=== PATIENT | female | born 1950 | race African-American/Black ===

== ENCOUNTER 2018-03-25 08:29 | Emergency (ER) | payer OTHER, MEDICAID ==
[~2018-03-25] VITALS: Ht 165.1 cm; Wt 82.6 kg
[~2018-03-25 08:29] MED LIST: ATEN100T PO
--- NOTE | 2018-03-25 08:37 | NUR ---
Patient refused carolee stating, "I have to go out to my car. I feel sick." I informed her that we do in fact treat sick people in the ER and we can help if she would like to come back immediately. Patient refused and walked out to her car.
[2018-03-25 08:58] VITALS: BP_SYST 130
--- NOTE | 2018-03-25 09:05 | NUR ---
Patient to ER bed 8 to gown for evaluation. Side rails up.
--- NOTE | 2018-03-25 09:15 | NUR ---
Pt presents to ED c/o R hand pain s/p blood draw. Pt has discoloration at site. Pt h/o L breast CA reports PICC line for access for chemo removed. Pt has limit access for iv access.
--- NOTE | 2018-03-25 09:20 | NUR ---
ER at bedside examining patient.
[2018-03-25] MEDS ORDERED: NACL 0.9% 1,000 ML IV ONE (09:45)
[2018-03-25] MEDS ORDERED: KETOROLAC TROMETHAMINE 30 MG VIAL IVP ONE (09:45)
[2018-03-25] MEDS ORDERED: ONDANSETRON HCL 4 MG/2 ML VIAL IVP ONE (09:45)
[2018-03-25] MEDS ORDERED: PANTOPRAZOLE SODIUM 40 MG/VIAL (PROTONIX) IVP ONE (10:15)
--- NOTE | 2018-03-25 11:15 | NUR ---
Pt tolerating medicationand hydration well. Continuing to monitor
[2018-03-25 11:26] LABS: HEMATOCRIT 35.1 % (36-48); HEMOGLOBIN 11.4 g/dL (12.0-16.0); MEAN CORPUSCULAR HEMOGLOBIN 27 pg (27-31); MEAN CORPUSCULAR HGB CONC 32 % (32-36); MEAN CORPUSCULAR VOLUME 85 fL (79.0-98.0); PLATELET COUNT (AUTO) 439 K/uL (130-430); RED BLOOD CELL COUNT(AUTO) 4.15 MIL/uL (4.2-6.2); RED CELL DISTRIBUTION WIDTH 13.2 % (9.0-15.0); WHITE BLOOD COUNT (AUTO) 3.2 K/uL (4.8-10.8)
[2018-03-25 11:29] LABS: CALCIUM 9.3 mg/dL (8.4-11.0); CREATININE 0.95 mg/dL (0.55-1.30); POTASSIUM 3.5 mmol/L (3.5-5.1)
[2018-03-25 11:35] LABS: PROTHROMBIN TIME 9.9 SECS (9.5-12.5)
[2018-03-25 11:36] LABS: ALBUMIN 3.2 g/dL (3.4-4.8); TOTAL BILIRUBIN 0.4 mg/dL (0.0-1.0)
[2018-03-25 11:57] LABS: BASOPHILS % (MANUAL) 0 % (0-2); EOSINOPHILS % (MANUAL) 0 % (0-7); LYMPHOCYTES % (MANUAL) 75 % (20-46); MONOCYTES % (MANUAL) 14 % (0-11)
[2018-03-25 12:41] VITALS: BP_SYST 128
--- NOTE | 2018-03-25 12:41 | NUR ---
Patient given written and verbal discharge instructions and verbalizes understanding. ER MD discussed with patient the results and treatment provided. Patient in stable condition. ID arm band removed. IV catheter removed intact and dressing applied, no active bleeding. Rx of zofran,naproxen,imodium given. Patient educated on pain management and to follow up with PMD. Pain Scale 0. Opportunity for questions provided and answered. Medication side effect fact sheet provided.
== END 2018-03-25 12:41 | disposition home or self-care (01) ==
LOC: SED 08:29
DX: K52.9 Noninfective gastroenteritis and colitis, unspecified (principal); M79.641 Pain in right hand; K21.9 Gastro-esophageal reflux disease without esophagitis; J45.909 Unspecified asthma, uncomplicated; I10 Essential (primary) hypertension
CPT/HCPCS: 36415; 80053; 85007; 85027; 85610; 85730; 96361; 96374; 96375; 99283; C9113; J1885; J2405; J7030

== ENCOUNTER 2019-01-23 08:24 | Emergency (ER) | payer OTHER, MEDICAID ==
[~2019-01-23] VITALS: Ht 165.1 cm; Wt 86.2 kg
[2019-01-23 08:24] VITALS: BP_SYST 109
--- NOTE | 2019-01-23 08:24 | NUR ---
BROUGHT BACK TO BED #7 AND TRIAGED, REPORT GIVEN TO PORTIA
--- NOTE | 2019-01-23 08:25 | NUR ---
Pt brought by self, A&Ox4, pt presents to ER with pain and discomfort on vaginal area,foul odor, pt states she had chemo recently , Hx of getting infections after chemo, skin pink and warm, cap refill <3, VSS, afebrile.
--- NOTE | 2019-01-23 09:00 | NUR ---
Dr Alberto at bedside examining patient
--- NOTE | 2019-01-23 09:10 | NUR ---
16 # FR In and Out catheter with use of sterile technique. Immediate return of 100 ml urine noted. Urine sample collected and sent to lab. Pt tolerated procedure . Patient unable to toilet self.
[2019-01-23] MEDS ORDERED: NACL 0.9% 1,000 ML IV ONE (09:34)
[2019-01-23 09:48] LABS: BILIRUBIN,URINE NEGATIVE (NEGATIVE); BLOOD, URINE NEGATIVE (NEGATIVE); CLARITY/URINE CLEAR (CLEAR); COLOR,URINE YELLOW (YELLOW); GLUCOSE,URINE NEGATIVE (NEGATIVE); KETONES,URINE NEGATIVE (NEGATIVE); LEUKOCYTE ESTERASE ,URINE TRACE (NEGATIVE); NITRITE, URINE NEGATIVE (NEGATIVE); PH,URINE 5.5 (5.0-8.0); PROTEIN URINE NEGATIVE (NEGATIVE)
[2019-01-23 09:55] LABS: BACTERIA,URINE FEW /HPF (None Seen); RBC,URINE 0-3 /HPF (0-3)
[2019-01-23 09:56] LABS: HYALINE CASTS, URINE 0-10 /LPF (None Seen)
[2019-01-23 10:29] LABS: BASOPHILS % (AUTO) 1.1 % (0.0-2.0); EOSINOPHILS % (AUTO) 0.1 % (0.0-4.0); HEMOGLOBIN 9.3 g/dL (12.0-16.0); LYMPHOCYTES # (AUTO) 1.4 K/uL (1.0-5.5); MEAN CORPUSCULAR HEMOGLOBIN 29 pg (27-31); MEAN CORPUSCULAR HGB CONC 33 % (32-36); MEAN CORPUSCULAR VOLUME 86 fL (79.0-98.0); MONOCYTES # (AUTO) 0.8 K/uL (0.0-1.0); MONOCYTES % (AUTO) 17.1 % (1.7-9.3); NEUTROPHILS # (AUTO) 2.3 K/uL (1.8-7.7); NEUTROPHILS % (AUTO) 50.7 % (40.0-70.0); RED BLOOD CELL COUNT(AUTO) 3.26 MIL/uL (4.2-6.2); RED CELL DISTRIBUTION WIDTH 17.1 % (9.0-15.0); WHITE BLOOD COUNT (AUTO) 4.6 K/uL (4.8-10.8)
[2019-01-23 10:35] LABS: CALCIUM 8.4 mg/dL (8.4-11.0); CREATININE 1.35 mg/dL (0.55-1.30); POTASSIUM 3.4 mmol/L (3.5-5.1)
--- NOTE | 2019-01-23 10:36 | NUR ---
Pt medicated as ordered, well tolerated.
[2019-01-23 10:40] LABS: ALBUMIN 2.6 g/dL (3.4-4.8); TOTAL BILIRUBIN 0.5 mg/dL (0.0-1.0)
[2019-01-23 10:54] LABS: PLATELET COUNT (AUTO) 186 K/uL (130-430)
[2019-01-23] MEDS ORDERED: POTASSIUM CHLORIDE 20 MEQ/PKT PACKET PO ONE (11:00)
[2019-01-23] MEDS ORDERED: ONDANSETRON HCL 4 MG/2 ML VIAL IVP ONE (11:15)
[2019-01-23 11:56] VITALS: BP_SYST 110
--- NOTE | 2019-01-23 11:56 | NUR ---
Patient given written and verbal discharge instructions and verbalizes understanding. ER MD discussed with patient the results and treatment provided. Patient in stable condition. ID arm band removed. IV catheter removed intact and dressing applied, no active bleeding. Rx of Zofran, fluconazole, Monistat given. Patient educated on pain management and to follow up with PMD. Pain Scale 0/10. Opportunity for questions provided and answered. Medication side effect fact sheet provided.
== END 2019-01-23 11:56 | disposition home or self-care (01) ==
LOC: SED 08:24
DX: B37.3 Candidiasis of vulva and vagina (principal)
CPT/HCPCS: 36415; 74018; 80053; 81000; 83690; 85025; 96374; 99284; J2405; J7030